=== PATIENT | male | born 1965 | race American Indian/Alaskan Native ===

== ENCOUNTER 2021-04-19 08:26 | Emergency (ER) | payer SELFPAY ==
[2021-04-19] MEDS ORDERED: ONDANSETRON 4 MG/2 ML INJ IV ONE (10:31)
[2021-04-19] MEDS ORDERED: MORPHINE 4 MG/1 ML INJ IV ONE (10:31)
--- NOTE | 2021-04-19 10:35 | Emergency Department Report ---
ED Chest Pain HPI - General Chief Complaint: Chest Pain Stated Complaint: HBP, CHEST PAIN/ STOMACH ACHE Time Seen by Provider: 04/19/21 10:25 Source: patient Mode of arrival: Ambulatory Limitations: No Limitations - History of Present Illness Initial Comments: 55-year-old -[place] male presents to the emergency department with complaint of generalized pain including headache, generalized chest pain, abdominal pain, and pain down his legs. It is associated with some nausea with vomiting. He denies any vision change, slurred speech, numbness or paresthesias, focal or weakness, shortness of breath, fever, cough. Patient also says that his blood pressure has been elevated. He denies any history of hypertension. He has also not seen a primary care physician x4 years. He is an occasional marijuana smoker. He denies any tobacco use, illicit drug use, or alcohol dependence. He tried some Tylenol for his symptoms without any relief. The patient is vaccinated against COVID-19. No recent travel or sick contacts at home. - Related Data Previous Rx's Medication Instructions Recorded Last Taken Type HYDROcodone/APAP 5-325 [[facility] 1 each PO Q6HR PRN #10 tablet 04/19/21 Unknown Rx 5/325] Ondansetron [Zofran Odt] 4 mg PO Q8HR PRN #15 tab.rapdis 04/19/21 Unknown Rx Allergies Allergy/AdvReac Type Severity Reaction Status Date / Time No Known Allergies Allergy Verified 04/19/21 08:28 Heart Score - HEART Score History: Slightly suspicious EKG: Normal Age: 45-65 Risk factors: No known risk factors Troponin: < normal limit HEART Score: 1 - EKG Read Time Time EKG Completed: 11:21 EKG Read Time: 11:25 - Critical Actions Critical Actions: 0-3 pts:0.9-1.7%risk of adverse cardiac event.Candidate for discharge ED Review of Systems ROS: Stated complaint: HBP, CHEST PAIN/ STOMACH ACHE Other details as noted in HPI Comment: All other systems reviewed and negative Constitutional: denies: chills, fever Eyes: denies: eye pain, vision change ENT: denies: ear pain, throat pain Respiratory: denies: cough, shortness of breath Cardiovascular: chest pain. denies: edema Gastrointestinal: abdominal pain, nausea, vomiting Genitourinary: denies: dysuria, discharge Musculoskeletal: myalgia. denies: joint swelling Skin: denies: rash, lesions Neurological: headache. denies: weakness, numbness, paresthesias ED Past Medical Hx - Past Medical History Previous Medical History?: No - Surgical History Past Surgical History?: No - Medications Home Medications: Home Medications Medication Instructions Recorded Confirmed Last Taken Type HYDROcodone/APAP 5-325 [[facility] 1 each PO Q6HR PRN #10 tablet 04/19/21 Unknown Rx 5/325] Ondansetron [Zofran Odt] 4 mg PO Q8HR PRN #15 tab.rapdis 04/19/21 Unknown Rx ED Physical Exam - General Limitations: No Limitations - Other Other exam information: GENERAL: The patient is well-developed well-nourished. HENT: Normocephalic. Atraumatic. Patient has moist mucous membranes. EYES: Extraocular motions are intact. No nystagmus. NECK: Supple. Trachea is midline. CHEST/LUNGS: Clear to auscultation. There is no respiratory distress noted. HEART/CARDIOVASCULAR: Regular. There is no tachycardia. There is no murmur. ABDOMEN: Abdomen is soft. Mild generalized abdominal tenderness to palpation. Patient has normal bowel sounds. There is no abdominal distention. SKIN: Skin is warm and dry. NEURO: The patient is awake, alert, and oriented. The patient is cooperative. The patient has no focal neurologic deficits. Normal speech. Cranial nerves II through XII grossly intact. No facial asymmetry. No pronator drift. MUSCULOSKELETAL: There is no tenderness or deformity. There is no limitation range of motion. Muscle strength 5/5 for upper and lower extremities bilaterally. ED Course Vital Signs 04/19/21 04/19/21 04/19/21 08:32 11:10 11:18 Temperature 98 F Pulse Rate 124 H 110 H Respiratory 16 18 Rate Blood Pressure 142/111 Blood Pressure 168/115 [Left] O2 Sat by Pulse 97 Oximetry 04/19/21 11:21 Temperature Pulse Rate 107 H Respiratory 16 Rate Blood Pressure 142/111 Blood Pressure [Left] O2 Sat by Pulse 99 Oximetry HUGO score - Hugo Score Age > 65: (0) No Aspirin use within the Past 7 Days: (0) No 3 or more CAD Risk Factors: (0) No 2 or more Angina events in past 24 hrs: (1) Yes Known CAD with more than 50% Stenosis: (0) No Elevated Cardiac Markers: (0) No ST Deviation Greater than 0.5mm: (0) No HUGO Score: 1 ED Medical Decision Making - Lab Data Result diagrams: 04/19/21 11:42 04/19/21 11:42 Lab Results 04/19/21 04/19/21 04/19/21 Range/Units 11:42 11:42 11:42 WBC 12.0 H (4.5-11.0) K/mm3 RBC 5.08 H (3.65-5.03) M/mm3 Hgb 16.1 H (11.8-15.2) gm/dl Hct 47.7 H (35.5-45.6) % MCV 94 (84-94) fl MCH 32 (28-32) pg MCHC 34 (32-34) % RDW 12.5 L (13.2-15.2) % Plt Count 310 (140-440) K/mm3 Lymph % (Auto) 19.4 (13.4-35.0) % [place] % (Auto) 5.8 (0.0-7.3) % Eos % (Auto) 0.1 (0.0-4.3) % Baso % (Auto) 0.3 (0.0-1.8) % Lymph # (Auto) 2.3 (1.2-5.4) K/mm3 [place] # (Auto) 0.7 (0.0-0.8) K/mm3 Eos # (Auto) 0.0 (0.0-0.4) K/mm3 Baso # (Auto) 0.0 (0.0-0.1) K/mm3 Seg Neutrophils % 74.4 H (40.0-70.0) % Seg Neutrophils # 8.9 H (1.8-7.7) K/mm3 D-Dimer < 135.00 (0-234) ng/mlDDU Sodium 133 L (137-145) mmol/L Potassium 4.8 (3.6-5.0) mmol/L Chloride 96.1 L (98-107) mmol/L Carbon Dioxide 21 L (22-30) mmol/L Anion Gap 21 mmol/L BUN 16 (9-20) mg/dL Creatinine 1.0 (0.8-1.3) mg/dL Estimated GFR > 60 ml/min BUN/Creatinine Ratio 16 % Glucose 116 H (75-100) mg/dL Calcium 9.7 (8.4-10.2) mg/dL Total Bilirubin 0.80 (0.1-1.2) mg/dL AST 36 (5-40) units/L ALT 26 (7-56) units/L Alkaline Phosphatase 59 (35-129) units/L Total Creatine Kinase (55-170) units/L Troponin T < 0.010 (0.00-0.029) ng/mL Total Protein 9.2 H (6.3-8.2) g/dL Albumin 5.1 H (3.9-5) g/dL Albumin/Globulin Ratio 1.2 % 04/19/21 04/19/21 Range/Units 11:42 14:04 WBC (4.5-11.0) K/mm3 RBC (3.65-5.03) M/mm3 Hgb (11.8-15.2) gm/dl Hct (35.5-45.6) % MCV (84-94) fl MCH (28-32) pg MCHC (32-34) % RDW (13.2-15.2) % Plt Count (140-440) K/mm3 Lymph % (Auto) (13.4-35.0) % [place] % (Auto) (0.0-7.3) % Eos % (Auto) (0.0-4.3) % Baso % (Auto) (0.0-1.8) % Lymph # (Auto) (1.2-5.4) K/mm3 [place] # (Auto) (0.0-0.8) K/mm3 Eos # (Auto) (0.0-0.4) K/mm3 Baso # (Auto) (0.0-0.1) K/mm3 Seg Neutrophils % (40.0-70.0) % Seg Neutrophils # (1.8-7.7) K/mm3 D-Dimer (0-234) ng/mlDDU Sodium (137-145) mmol/L Potassium (3.6-5.0) mmol/L Chloride (98-107) mmol/L Carbon Dioxide (22-30) mmol/L Anion Gap mmol/L BUN (9-20) mg/dL Creatinine (0.8-1.3) mg/dL Estimated GFR ml/min BUN/Creatinine Ratio % Glucose (75-100) mg/dL Calcium (8.4-10.2) mg/dL Total Bilirubin (0.1-1.2) mg/dL AST (5-40) units/L ALT (7-56) units/L Alkaline Phosphatase (35-129) units/L Total Creatine Kinase 1381 H (55-170) units/L Troponin T < 0.010 (0.00-0.029) ng/mL Total Protein (6.3-8.2) g/dL Albumin (3.9-5) g/dL Albumin/Globulin Ratio % - EKG Data -: EKG Interpreted by Me EKG shows normal: sinus rhythm, axis, intervals (Prolonged QTC), QRS complexes, ST-T waves Rate: normal - EKG Data When compared to previous EKG there are: previous EKG unavailable Interpretation: other (Sinus rhythm at 91 bpm, normal axis, prolonged QTC. No ST elevation WI) - Radiology Data Radiology results: image reviewed interpreted by me: Chest x-ray does not show any acute process. There are no pleural effusions, obvious pneumonia and there is no pneumothorax. No widened mediastinum. Abdominal x-ray shows nonspecific nonobstructive bowel gas. - Medical Decision Making This patient presents to the emergency department with a complaint of generalized body aches including generalized chest pain, abdominal pain, and pain down in his legs. The patient also has complaint of a headache. He does not have any focal, motor or sensory deficits and his cranial nerves are intact. Heart and lung sounds are normal to auscultation and the patient does not appear in any respiratory or acute distress. EKG does not have any morphology consistent with ST elevation myocardial infarction. Chest x-ray does not show any pneumonia, pleural effusions, pneumothorax, widened mediastinum, or any other acute process. Abdominal x-ray shows nonspecific nonobstructive bowel gas and no free air. The patient's labs have been mostly unremarkable including CBC, metabolic panel, negative troponins x2, negative D-dimer. The patient does have an elevated CK level of about 1200. No renal insufficiency and the patient does not appear to be in overt rhabdomyolysis. There is some hemoconcentration and with the ang vated CK level there may be some level of dehydration. He was given IV fluid resuscitation and doses of IV analgesia. Upon reevaluation he is feeling greatly improved. The headache is completely resolved. The chest pain is completely resolved. The abdominal pain is transient but greatly improved. The abdomen is soft, nondistended and nontoxic in appearance. The patient was seen ambulatory in the emergency department and both appears and feels stable. For these reasons patient appears safe for discharge home at this time. He has been given outpatient referral for primary care and cardiology. He will return to the emergency department with any worsening of symptoms or with any acute distress. Critical Care Time: No Critical care attestation.: If time is entered above; I have spent that time in minutes in the direct care of this critically ill patient, excluding procedure time. ED Disposition Clinical Impression: Atypical chest pain, Body aches, Dehydration, Elevated blood pressure reading Abdominal pain Qualifiers: Abdominal location: unspecified location Qualified Code(s): R10.9 - Unspecified abdominal pain Disposition: 01 HOME / SELF CARE / HOMELESS Is pt being admited?: No Condition: Stable Instructions: Abdominal Pain, Adult, Muscle Pain, Adult, Nonspecific Chest Pain, Adult, Hypertension, Adult, Dehydration, Adult Additional Instructions: Please follow-up with a primary care physician in the next few days. I have given you a referral for a local primary care physician, Dr. Bacon, and a primary care clinic, [facility]. I am giving you a referral for a local career technical supervisor, Dr. Reyes, to follow-up regarding your chest pains. Increase your oral rehydration. Try to stay away from foods that are high in salt and caffeinated products. Keep a blood pressure log. You have been prescribed a medication that is sedating and therefore should not be taken prior to driving, working, and responsible for children and in no way should be mixed with alcohol of any quantity. Return to the emergency department with any worsening of your symptoms, new or concerning symptoms not addressed during this current emergency department visit, or with any acute distress. Prescriptions: HYDROcodone/APAP 5-325 [[facility] 5/325] 1 each PO Q6HR PRN #10 tablet PRN Reason: Pain Ondansetron [Zofran Odt] 4 mg PO Q8HR PRN #15 tab.rapdis PRN Reason: Nausea Referrals: PRIMARY CARE, [Primary Care Provider] - 3-5 Days YADY BACON MD [Staff Physician] - 3-5 Days ADDISON REYES MD [Staff Physician] - 3-5 Days [facility] [Provider Group] - 3-5 Days Time of Disposition: 15:28
[2021-04-19 11:19] VITALS: BP 142/111
--- NOTE | 2021-04-19 11:34 | XRay Report ---
Abdominal series with chest x-ray HISTORY: Chest pain, abdominal pain COMPARISON: None. IMPRESSION: Single view of the chest is unremarkable demonstrating normal heart and mediastinal struc tures and clear lungs. Supine and upright views of the abdomen demonstrate an unremarkable bowel gas pattern. No evidence for obstruction, fluid levels or free air. No pathologic calcifications. Signer Name: Sushil Sahni Jr, MD Signed: 04/19/2021 11:30 AM Workstation Name: [id number]
[2021-04-19 12:51] LABS: Basophils % (Auto) 0.3 % (0.0-1.8); Eosinophils % (Auto) 0.1 % (0.0-4.3); Hematocrit 47.7 % (35.5-45.6); Hemoglobin 16.1 gm/dl (11.8-15.2); Lymphocytes # (Auto) 2.3 K/mm3 (1.2-5.4); Lymphocytes % (Auto) 19.4 % (13.4-35.0); Mean Corpuscular HGB Conc 34 % (32-34); Mean Corpuscular Volume 94 fl (84-94); Monocytes # (Auto) 0.7 K/mm3 (0.0-0.8); Monocytes % (Auto) 5.8 % (0.0-7.3); Platelet Count 310 K/mm3 (140-440); Red Blood Count 5.08 M/mm3 (3.65-5.03); Red Cell Distribution Width 12.5 % (13.2-15.2)
[2021-04-19] MEDS ORDERED: SODIUM CHLORIDE 0.9% 1000 ML 1,000 ML IV ONE (13:04)
[2021-04-19 13:07] LABS: Alanine Aminotransferase 26 units/L (7-56); Albumin 5.1 g/dL (3.9-5); BUN/Creatinine Ratio 16; Blood Urea Nitrogen 16 mg/dL (9-20); Calcium 9.7 mg/dL (8.4-10.2); Hemolysis Index 72
--- NOTE | 2021-04-24 14:45 | Electrocardiograph Report ---
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
--- NOTE | 2021-04-25 09:48 | Electrocardiograph Report ---
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
== END 2021-04-19 16:13 | disposition home or self-care (01) ==
LOC: ED 08:26
DX: R07.9 Chest pain, unspecified (principal); M79.18 Myalgia, other site; E86.0 Dehydration; R03.0 Elevated blood-pressure reading, without diagnosis of hypertension; R10.9 Unspecified abdominal pain
CPT/HCPCS: 36415; 74022; 80053; 82550; 84484; 85025; 85379; 93005; 96361; 96374; 96375; 99284; J2270; J2405; J7030